=== PATIENT | female | born 1980 | race Hispanic/Latino ===

== ENCOUNTER 2016-09-30 20:29 | Emergency (ER) | payer SELFPAY ==
[~2016-09-30] VITALS: Ht 157.5 cm; Wt 68.0 kg
[~2016-09-30 20:29] MED LIST: ACET325T38 PO; BUTA1TAB46 PO; CPR500T PO; CYCL10TA9 PO; ESCT10T; HYDR1TAB PO; IBP800T PO; MECL-133 PO; METR500T PO; OMEP20CA12 PO; PANT20TA2 PO; POTA10TA36 PO; SCR1T1 PO; SULF1TAB35 PO; TOPI100T PO; TRM50T PO; inhaler
--- OUTSIDE RECORDS SUMMARY | 2016-09-30 20:33 | XMS REPORT | Continuity of Care Document ---
Author Author [facility] Organization [facility] Address Unknown Phone Unavailable Care Team Providers Care Micro Computer Specialist Name Role Phone Evan Ceron PCP Unavailable Source Comments Some departments are not documenting in the electronic medical record. If you do not see the information that you expected, contact Release of Information in the Health Information Management department at [phone] for further assistance in locating additional records.[facility] Active Allergies and Adverse Reactions Not on File Current Medications Not on file Active Problems Not on file Social History Tobacco Use Types Packs/Day Years Used Date Never Assessed Plan of Care Health Maintenance Due Date Last Done Comments Physical (Comprehensive) 1986 Exam Pertussis Vaccine 1990 Tetanus Vaccine 1996 Cervical Cancer Screening 2000 Influenza Vaccine 04/22/2016 Results from Last 3 Months Not on file
[2016-09-30 21:20] VITALS: BP 129/78
== END 2016-09-30 23:00 | disposition left against medical advice (07) ==
LOC: EDUNIT# 20:29 → ER 20:30
DX: S89.92XA Unspecified injury of left lower leg, initial encounter (principal); Z53.21 Procedure and treatment not carried out due to patient leaving prior to being seen by health care provider; V49.9XXA Car occupant (driver) (passenger) injured in unspecified traffic accident, initial encounter; Y92.410 Unspecified street and highway as the place of occurrence of the external cause; Y99.8 Other external cause status
CPT/HCPCS: 99281

== ENCOUNTER 2017-05-05 20:21 | Emergency (ER) | payer SELFPAY ==
[~2017-05-05] VITALS: Ht 157.5 cm; Wt 68.0 kg
[2017-05-05] MEDS ORDERED: LACTATED RINGERS 1,000 ML IV ONE (20:45)
[2017-05-05] MEDS ORDERED: ONDANSETRON 4 MG/2 ML (SDV) Z0FRAN IVP ONE (20:45)
[2017-05-05 21:02] LABS: BASOPHILS % (AUTO) 0 % (0-10); EOSINOPHILS % (AUTO) 0 % (0-10); LYMPHOCYTES # (AUTO) 0.8 X 10^3 (1.0-4.0); LYMPHOCYTES % (AUTO) 9 % (12-44); MEAN CORPUSCULAR HEMOGLOBIN 31 PG (25-34); MEAN CORPUSCULAR HGB CONC 34 G/DL (32-36); MEAN CORPUSCULAR VOLUME 91 FL (80-99); MONOCYTES # (AUTO) 1.3 X 10^3 (0.0-1.0); MONOCYTES % (AUTO) 13 % (0-12); NEUTROPHILS # (AUTO) 7.6 X 10^3 (1.8-7.8); NEUTROPHILS % (AUTO) 78 % (42-75); PLATELET COUNT 153 10^3/uL (130-400); RED BLOOD COUNT 3.98 10^6/uL (4.35-5.85); RED CELL DISTRIBUTION WIDTH 12.2 % (10.0-14.5); WHITE BLOOD COUNT 9.7 10^3/uL (4.3-11.0)
--- NOTE | 2017-05-05 21:03 | ED GI ---
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 ) History of Present Illness Time Seen By Provider: 20:40 Initial Comments C/O NAUSEA AND VOMITING-VOMITED X 8 TODAY C/O SUBJECTIVE FEVER C/O GENERALIZED ABDOMINAL PAIN C/O RIGHT LOWER BACK PAIN SYMPTOMS FOR 5 DAYS NO DIARRHEA A WEEK OR TWO AGO, WAS HAVING A LOT OF PAIN ON URINATION VOIDED X 4 TODAY NO FOOD INTAKE TODAY, BUT HAS BEEN DRINKING WATER AND JUICE SEEN AT [facility] YESTERDAY AND DX WITH A "VIRUS" --NO TESTS WERE DONE AND PT WAS GIVEN A SHOT--"MAYBE PENICILLIN" PER MALE S.O. PT TOOK IBUPROFEN AT 1900 TODAY PCP: [facility] Allergies and Home Medications Allergies Coded Allergies: iron (Verified Allergy, Unknown, 03/15/16) iron dextran complex (Verified Allergy, Unknown, 03/15/16) meperidine (Verified Allergy, Unknown, 03/15/16) Home Medications Acetaminophen 325 Mg Tablet, 325 MG PO, (Reported) Ketorolac Tromethamine 10 Mg Tablet, 10 MG PO Q6H, #15 Prescribed by: DAVID PFEIFFER on 05/05/172216 Levofloxacin 500 Mg Tablet, 500 MG PO DAILY, #10 Prescribed by: DAVID PFEIFFER on 05/05/177 Ondansetron 4 Mg Tab.rapdis, 4 MG PO Q4H, #10 Prescribed by: DAVID PFEIFFER on 05/05/177 Review of Systems Constitutional: see HPI, fever, malaise Respiratory: No Symptoms Reported Cardiovascular: No Symptoms Reported Gastrointestinal: See HPI, Abdominal Pain, Denies Diarrhea, Nausea, Poor Appetite, Poor Fluid Intake, Vomiting Genitourinary: See HPI, Burning, Flank Pain, Pain Musculoskeletal: see HPI, back pain Past Sgjezjb-[id number]-Uyopiu Hx Patient Social History Alcohol Use: Occasionally Uses (VERY HEAVY AT TIMES--HAS BEEN ADMITTED FOR ALCOHOL INTOXICATIN) Alcohol Beverage of Choice: Beer Recreational Drug Use: Yes (DRUG OVERDOSES / SUICIDE ATTEMPTS) Smoking Status: Never a Smoker 2nd Hand Smoke Exposure: No Recent Foreign Travel: No Contact w/Someone Who Travel: No Recent Hopitalizations: No Immunizations Up To Date Tetanus Booster (TDap): Unknown PED Vaccines UTD: No Date of Pneumonia Vaccine: May 22, 2011 Date of Influenza Vaccine: May 22, 2011 Seasonal Allergies Seasonal Allergies: Yes Surgeries History of Surgeries: Yes (BARBARA 2001; APPY 2004; LAPAROSCOPY/RSO/LYSIS OF ADHESIONS/OVARIAN CYST REMOVAL 2005; LATER HYST/LSO PER OLD RECORDS. 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 Genitourinary History of Genitourinary Disor: No Gastrointestinal History of Gastrointestinal Di: Yes (CHRONIC ABDOMINAL PAIN; GASTRITIS) Gastrointestinal Disorders: Gastroesophageal Reflux, Hiatal Hernia, Ulcer, Gall Bladder Disease Musculoskeletal History of Musculoskeletal Dis: No Endocrine History of Endocrine Disorders: No HEENT History of HEENT Disorders: No Cancer History of Cancer: No Psychosocial History of Psychiatric Problem: Yes (EXTENSIVE PSYCH ISSUSES, SUICIDE ATTEMPTS , DRUG OVERDOSES, SOMATIZATION DISORDER) Behavioral Health Disorders: Anxiety, Suicide Attempts, Depression Integumentary History of Skin or Integumenta: No Blood Transfusions History of Blood Disorders: Yes (hx of blood transfusion) Family Medical History Significant Family History: No Pertinent Family Hx Physical Exam Vital Signs VS - Last 72 Hours, by Label 05/05/17 05/05/17 05/05/17 20:51 21:50 22:22 Temp 101.1 101.1 99.2 Pulse 78 63 Resp 18 18 B/P (MAP) 122/73 Pulse Ox 96 98 O2 Delivery Room Air Room Air Capillary Refill : General Appearance: WD/WN, no apparent distress HEENT: PERRL/EOMI, other (ORAL MUCOSA MOIST) Neck: normal inspection Respiratory: normal breath sounds, no respiratory distress, no accessory muscle use Cardiovascular: normal peripheral pulses, regular rate, rhythm, no murmur Gastrointestinal: normal bowel sounds, soft, no organomegaly, no pulsatile mass , No distended, No guarding, No rebound, tenderness (DIFFUSE), No hernia, No mass Extremities: normal inspection, normal capillary refill Back: normal inspection, CVA tenderness (R) 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/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 nml as tested, no motor/sensory deficits, alert, normal mood/affect, oriented x 3 Skin: normal color, warm/dry Focused Exam Evaluation Lactate Level Laboratory Tests 05/05/17 21:04: Lactic Acid Level 0.76 Lactic Acid Level Laboratory Tests Test 05/05/17 21:04 Lactic Acid Level 0.76 MMOL/L (0.50-2.00) Progress/Results/Core Measures Results/Orders Lab Results Laboratory Tests Test 05/05/17 20:45 05/05/17 20:48 05/05/17 21:04 Range/Units White Blood Count 9.7 4.3-11.0 10^3/uL Red Blood Count 3.98 L 4.35-5.85 10^6/uL Hemoglobin 12.2 11.5-16.0 G/DL Hematocrit 36 35-52 % Mean Corpuscular Volume 91 80-99 FL Mean Corpuscular Hemoglobin 31 25-34 PG Mean Corpuscular Hemoglobin Concent 34 32-36 G/DL Red Cell Distribution Width 12.2 10.0-14.5 % Platelet Count 153 130-400 10^3/uL Mean Platelet Volume 10.0 7.4-10.4 FL Neutrophils (%) (Auto) 78 H 42-75 % Lymphocytes (%) (Auto) 9 L 12-44 % Monocytes (%) (Auto) 13 H 0-12 % Eosinophils (%) (Auto) 0 0-10 % Basophils (%) (Auto) 0 0-10 % Neutrophils # (Auto) 7.6 1.8-7.8 X 10^3 Lymphocytes # (Auto) 0.8 L 1.0-4.0 X 10^3 Monocytes # (Auto) 1.3 H 0.0-1.0 X 10^3 Eosinophils # (Auto) 0.0 0.0-0.3 10^3/uL Basophils # (Auto) 0.0 0.0-0.1 10^3/uL Sodium Level 136 135-145 MMOL/L Potassium Level 3.9 3.6-5.0 MMOL/L Chloride Level 98 98-107 MMOL/L Carbon Dioxide Level 26 21-32 MMOL/L Anion Gap 12 5-14 MMOL/L Blood Urea Nitrogen 16 7-18 MG/DL Creatinine 0.75 0.60-1.30 MG/DL Estimat Glomerular Filtration Rate > 60 BUN/Creatinine Ratio 21 Glucose Level 119 H 70-105 MG/DL Calcium Level 9.4 8.5-10.1 MG/DL Total Bilirubin 0.3 0.1-1.0 MG/DL Aspartate Amino Transf (AST/SGOT) 25 5-34 U/L Alanine Aminotransferase (ALT/SGPT) 23 0-55 U/L Alkaline Phosphatase 79 40-136 U/L Total Protein 7.5 6.4-8.2 GM/DL Albumin 3.6 3.2-4.5 GM/DL Amylase Level 27 25-125 U/L Lipase 4 L 8-78 U/L Serum Test, Qualitative NEGATIVE NEGATIVE Serum Alcohol < 10 <10 MG/DL Urine Color YELLOW Urine Clarity SLIGHTLY CLOUDY Urine pH 8 5-9 Urine Specific [place] 1.010 L 1.016-1.022 Urine Protein 3+ H NEGATIVE Urine Glucose (UA) NEGATIVE NEGATIVE Urine Ketones 4+ H NEGATIVE Urine Nitrite POSITIVE H NEGATIVE Urine Bilirubin NEGATIVE NEGATIVE Urine Urobilinogen 4 H NORMAL MG/DL Urine Leukocyte Esterase 3+ H NEGATIVE Urine RBC (Auto) 5+ H NEGATIVE Urine RBC 5-10 H /HPF Urine WBC TNTC H /HPF Urine Squamous Epithelial Cells 0-2 /HPF Urine Crystals NONE /LPF Urine Bacteria LARGE H /HPF Urine Casts NONE /LPF Urine Mucus NEGATIVE /LPF Urine Culture Indicated YES Urine Opiates Screen NEGATIVE NEGATIVE Urine Oxycodone Screen NEGATIVE NEGATIVE Urine Methadone Screen NEGATIVE NEGATIVE Urine Propoxyphene Screen NEGATIVE NEGATIVE Urine Barbiturates Screen NEGATIVE NEGATIVE Ur Tricyclic Antidepressants Screen NEGATIVE NEGATIVE Urine Phencyclidine Screen NEGATIVE NEGATIVE Urine Amphetamines Screen NEGATIVE NEGATIVE Urine Methamphetamines Screen NEGATIVE NEGATIVE Urine Benzodiazepines Screen NEGATIVE NEGATIVE Urine Cocaine Screen NEGATIVE NEGATIVE Urine Cannabinoids Screen NEGATIVE NEGATIVE Lactic Acid Level 0.76 0.50-2.00 MMOL/L My Orders Orders - DAVID PFEIFFER DO Saline Lock/Iv-Start (05/05/17 20:45) Amylase (05/05/17 20:45) Cbc With Automated Diff (05/05/17 20:45) Comprehensive Metabolic Panel (05/05/17 20:45) Hcg,Qualitative Serum (05/05/17 20:45) Lactic Acid Analyzer (05/05/17 20:45) Lipase (05/05/17 20:45) Ua Culture If Indicated (05/05/17 20:45) Blood Culture (05/05/17 20:45) Ondansetron Injection (Zofran Injectio (05/05/17 20:45) Saline Lock/Iv-Start (05/05/17 20:45) Lactated Ringers (Lr 1000 Ml Iv Solution (05/05/17 20:45) Alcohol (05/05/17 20:45) Drug Screen Stat (Urine) (05/05/17 20:45) Urine Culture (05/05/17 20:48) Ct Abd/Pelvis Wo(Kidney Stone) (05/05/17 21:27) Acute Abd Series (05/05/17 21:27) Ketorolac Injection (Toradol Injection) (05/05/17 21:27) Ceftriaxone Injection (Rocephin Injectio (05/05/17 21:30) Ceftriaxone Injection (Rocephin Injectio (05/05/17 21:45) Ketorolac Injection (Toradol Injection) (05/05/17 21:45) Rx-Ondansetron Po (Rx-Zofran Po) (05/05/17 22:17) Levofloxacin Tablet (Levaquin Tablet) (05/05/17 22:30) Medications Given in ED Current Medications Medications Dose Ordered Sig/Rossana Route Start Time Stop Time Status Last Admin Dose Admin Ceftriaxone Sodium 1000 mg/ Sodium Chloride 50 ml @ 100 mls/hr ONCE ONCE IV 05/05/17 21:45 05/05/17 22:14 DC 05/05/17 21:50 100 MLS/HR Ketorolac Tromethamine 30 mg ONCE ONCE IVP 05/05/17 21:45 05/05/17 21:46 DC 05/05/17 21:50 30 MG Lactated Ringer's 1,000 ml @ 0 mls/hr Q0M ONCE IV 05/05/17 20:45 05/05/17 20:57 DC 05/05/17 21:06 0 MLS/HR Levofloxacin 500 mg ONCE ONCE PO 05/05/17 22:30 05/05/17 22:30 DC 05/05/17 22:21 500 MG Ondansetron HCl 4 mg ONCE ONCE IVP 05/05/17 20:45 05/05/17 20:56 DC 05/05/17 21:06 4 MG Vital Signs/I&O Vital Sign - Last 12Hours 05/05/17 05/05/17 05/05/17 20:51 21:50 22:22 Temp 101.1 101.1 99.2 Pulse 78 63 Resp 18 18 B/P (MAP) 122/73 Pulse Ox 96 98 O2 Delivery Room Air Room Air Progress Note : Progress Note NO VOMITING DURING ER STAY AND NAUSEA RESOLVED PAIN ALSO RESOLVED AT DISMISSAL FEELS MUCH BETTER TEMP DOWN TO 99.2 AT DISMISSAL BP > 100 SYSTOLIC AT DISMISSAL Diagnostic Imaging Comments CT ABDOMEN/PELVIS--BILATERAL PERINEPHRIC STRANDING, LEFT > RIGHT, NO RENAL OR URETERAL CALCULI, OTHERWISE NO ACUTE PROCESS--PER RADIOLOGIST REPORT @ 2210 ACUTE ABDOMEN XRAYS--NO ACUTE PROCESS, PENDING RADIOLOGIST REVIEW Reviewed: Reviewed by Me Departure Impression Impression: Primary Impression: Pyelonephritis Disposition: 01 HOME, SELF-CARE Condition: Improved Departure-Patient Inst. Referrals: [facility] (PCP/Family) Primary Care Physician Patient Instructions: Urinary Tract Infection, Adult (DC) Add. Discharge Instructions: LOTS OF CLEAR LIQUIDS--WATER, BROTH, JELLO, GATORADE TYLENOL 1 GRAM 4 TIMES A DAY FOR PAIN OR FEVER FOLLOW UP WITH [facility] IN 2-3 DAYS FOR FURTHER CARE, RETURN TO ER IF WORSE All discharge instructions reviewed with patient and/or family. Voiced understanding. Scripts Ketorolac Tromethamine (Ketorolac Tromethamine) 10 Mg Tablet 10 MG PO Q6H for Pain, #15 TAB Prov: DAVID PFEIFFER DO 05/05/17 Ondansetron (Zofran Odt) 4 Mg Tab.rapdis 4 MG PO Q4H for Nausea/Vomiting, #10 TAB Prov: DAVID PFEIFFER DO 05/05/17 Levofloxacin (Levaquin) 500 Mg Tablet 500 MG PO DAILY for INFECTION, #10 TAB Prov: DAVID PFEIFFER DO 05/05/17 DAVID PFEIFFER DO May 05, 2017 21:03
[2017-05-05 21:20] LABS: BILIRUBIN,URINE NEGATIVE (NEGATIVE); KETONES,URINE 4+ (NEGATIVE); LEUKOCYTE ESTERASE ,URINE 3+ (NEGATIVE); NITRITE,URINE POSITIVE (NEGATIVE); PH,URINE 8 (5-9); PROTEIN,URINE 3+ (NEGATIVE); UROBILINOGEN,URINE 4 MG/DL (NORMAL)
[2017-05-05 21:21] LABS: SQUAMOUS EPITHELIAL CELL,UR 0-2 /HPF; WBC,URINE TNTC /HPF
[2017-05-05 21:21] LABS: ALANINE AMINOTRANSFERASE 23 U/L (0-55); ALBUMIN 3.6 GM/DL (3.2-4.5); ALCOHOL < 10 MG/DL (<10); AMYLASE 27 U/L (25-125); ANION GAP 12 MMOL/L (5-14); ASPARTATE AMINO TRANSFERASE 25 U/L (5-34); BILIRUBIN,TOTAL 0.3 MG/DL (0.1-1.0); BLOOD UREA NITROGEN 16 MG/DL (7-18); BUN/CREATININE RATIO 21; CALCIUM 9.4 MG/DL (8.5-10.1); CARBON DIOXIDE 26 MMOL/L (21-32); CHLORIDE 98 MMOL/L (98-107); CREATININE SERUM 0.75 MG/DL (0.60-1.30); GFR ESTIMATED > 60; GLUCOSE 119 MG/DL (70-105); LIPASE 4 U/L (8-78); POTASSIUM 3.9 MMOL/L (3.6-5.0); SODIUM 136 MMOL/L (135-145); TOTAL PROTEIN 7.5 GM/DL (6.4-8.2)
[2017-05-05] MEDS ORDERED: KETOROLAC 30 MG/ML VIAL IVP STA (21:27)
[2017-05-05] MEDS ORDERED: cefTRIAXone INJECTION 1,000 MG in NS (IVPB) 50 ML IV ONE ×2 (21:30→21:45)
[2017-05-05] MEDS ORDERED: KETOROLAC 30 MG/ML VIAL IVP ONE (21:45)
--- NOTE | 2017-05-05 22:07 | Diagnostic Imaging Report ---
PROCEDURE: CT urinary tract, rule out kidney stone. TECHNIQUE: Multiple contiguous axial images were obtained through the abdomen and pelvis without the use of intravenous contrast. INDICATION: 37-year-old female presents with abdominal pain for 4 days. COMPARISONS: 09/04/11 FINDINGS: Lung bases show few scattered atelectatic infiltrates but no significant consolidations. Cardiac contour is normal. There is a sliver of pericardial fluid probably physiologic. The nonenhanced liver shows uniform attenuation. No definite intraparenchymal mass or ductal dilatation seen. Gallbladder surgically absent. Spleen and GE junction are normal. Stomach and duodenal sweep are normal. Pancreas shows sharp margins. Adrenals are normal. There is bilateral perinephric stranding, left greater than right. There is no evidence of hydronephrosis. The kidneys appear normal in size, position, and contour. No discrete renal or ureteral calculi seen. Both ureters seen intermittently through their course but appear minimally prominent. No discrete ureteral calculus seen. Multiple pelvic phleboliths are present. The filled bladder is unremarkable. Nonopacified loops of small bowel are normal. The appendix appears to be surgically absent. Large bowel contains fecal material and gas. There is no free air, free fluid or adenopathy. The descending colon is mostly decompressed. IMPRESSION: 1. Bilateral perinephric stranding left greater than right. There is no discrete renal or ureteral calculus. The ureters, however, are minimally prominent. Differential includes pyelonephritis. 2. Surgical absence of the gallbladder and possible surgical absence of the appendix. Additional nonemergent findings as described above. Dictated by: Dictated on workstation # [id number]
[2017-05-05] MEDS ORDERED: LEVO500T2 PO (22:17)
[2017-05-05] MEDS ORDERED: ONDA4TAB8 PO (22:17)
[2017-05-05] MEDS ORDERED: KETO10TA PO (22:17)
[2017-05-05] MEDS ORDERED: RX-ONDANSETRON 4 MG ODT (ZOFRAN) PPK #4 PO STA (22:17)
[2017-05-05 22:22] VITALS: BP 107/65
[2017-05-05] MEDS ORDERED: LEVOFLOXACIN 500 MG TAB (LEVAQUIN) PO ONE (22:30)
--- NOTE | 2017-05-06 07:26 | Diagnostic Imaging Report ---
PA chest and upright and supine views of the abdomen. INDICATION: Abdominal pain. FINDINGS: The lungs are clear. The heart size is normal. No effusion or pneumothorax. The mediastinum and isauro appear unremarkable. There is no pneumoperitoneum. No dilated bowel loops or significant air-fluid levels are seen. There are surgical clips in the upper right side aspect of the abdomen. Calcifications in the pelvis appear to relate to phleboliths. IMPRESSION: No pneumoperitoneum or evidence of bowel obstruction. Dictated by: Dictated on workstation # [id number]
== END 2017-05-05 22:23 | disposition home or self-care (01) ==
LOC: EDUNIT# 20:21 → ER 20:23
DX: N12 Tubulo-interstitial nephritis, not specified as acute or chronic (principal); J45.909 Unspecified asthma, uncomplicated; G43.909 Migraine, unspecified, not intractable, without status migrainosus; K21.9 Gastro-esophageal reflux disease without esophagitis; F41.9 Anxiety disorder, unspecified; F32.9 Major depressive disorder, single episode, unspecified; Z91.5 Personal history of self-harm; Z87.448 Personal history of other diseases of urinary system; Z90.49 Acquired absence of other specified parts of digestive tract; Z87.19 Personal history of other diseases of the digestive system; Z90.710 Acquired absence of both cervix and uterus
CPT/HCPCS: 36415; 74022; 74176; 80053; 80306; 80320; 81000; 82150; 83605; 83690; 84703; 85025; 87040; 87088; 87186; 96374; 96375

== ENCOUNTER → 2018-01-10 | Outpatient (CLI) | payer OTHER ==
[~2018-01-10] MED LIST changes: +KETO10TA PO; +LEVO500T2 PO; +ONDA4TAB8 PO
--- NOTE | 2018-01-10 14:56 | Diagnostic Imaging Report ---
INDICATION: History of dysfunctional uterine bleeding. Episode of vaginal bleeding. History of hysterectomy 13 years ago. TECHNIQUE: Multiple real time lundberg scale sonographic images were obtained of the pelvis endovaginally. CORRELATION STUDY: None. FINDINGS: The uterus and/or either ovary is not visualized compatible with surgical history. A definitive pelvic mass lesion is not suggested. Visualized portions of vaginal cuff have an unremarkable appearance. No significant pelvic fluid. IMPRESSION: 1.Findings compatible with a hysterectomy and likely oophorectomy. No definitive evidence for abnormal pelvic mass lesion on endovaginal imaging. Dictated by: Dictated on workstation # [id number]
== END ==
LOC: RAD 07:14
DX: N93.9 Abnormal uterine and vaginal bleeding, unspecified (principal); Z87.42 Personal history of other diseases of the female genital tract; Z90.710 Acquired absence of both cervix and uterus
CPT/HCPCS: 76830